=== PATIENT | male | born 1990 | race Caucasian/White ===

== ENCOUNTER 2016-02-20 16:54 | Emergency (ER) | payer OTHER ==
[~2016-02-20] VITALS: Ht 172.7 cm; Wt 93.2 kg
[2016-02-20 16:55] VITALS: BP 130/62
[2016-02-20 17:54] LABS: INFLUENZA B NEGATIVE
[2016-02-20 18:19] VITALS: PULSE 72; TEMP 99.8
== END 2016-02-20 18:20 | disposition home or self-care (01) ==
LOC: COL.ER 16:54
PROVIDERS: Nurse Practitioner
DX: J11.1 Influenza due to unidentified influenza virus with other respiratory manifestations (principal)